=== PATIENT | female | born 2000 | race Hispanic/Latino ===

== ENCOUNTER 2025-08-13 14:48 | Inpatient (IN) | payer MEDICAID, OTHER, SELFPAY ==
[2025-08-13] MEDS ORDERED: Diphenoxylate HCl/Atropine Tablet PO PRN (20:14)
[2025-08-13] MEDS ORDERED: Tranexamic Acid 1,000 MG/10 ML VIAL IVP PRN (20:14)
[2025-08-13] MEDS ORDERED: hydrALAZINE 20 MG/ML VIAL SLOW IVP PRN (20:14)
[2025-08-13] MEDS ORDERED: Ondansetron PF 4 MG/2 ML Vial IVP PRN (20:14)
[2025-08-13] MEDS ORDERED: Carboprost 250 MCG/ML AMP IM PRN (20:14)
[2025-08-13] MEDS ORDERED: Methylergonovine 0.2 MG/ML VIAL IM PRN (20:14)
[2025-08-13] MEDS ORDERED: Ibuprofen 800 MG TAB PO PRN (20:14)
[2025-08-13] MEDS ORDERED: HYDROcodone/Acetaminophen 5/325 mg Tablet PO PRN (20:14)
[2025-08-13 20:26] VITALS: BMI 38.4
[2025-08-13] MEDS ORDERED: Oxytocin 30 units/NS 500 ML 500 ML IV SCH (20:30)
[2025-08-13 21:24] LABS: Hematocrit 34.9 % (34.9-44.5); Hemoglobin 11.9 g/dL (12.0-15.5); Mean Corpuscular Hemoglobin 32.8 pg (27.0-33.0); Mean Corpuscular Volume 96.1 fL (81.6-98.3); Platelet Count 142 10x3/uL (150-450); Red Blood Cell (RBC) Count 3.63 10x6/uL (3.90-5.03); White Blood Cell (WBC) Count 9.20 10x3/uL (3.5-10.5)
[2025-08-13 21:44] LABS: Hep B Surf Ag - L&D Non-Reactive S/CO (NonReactive)
[2025-08-13 21:45] LABS: Syphilis Antibody Index 0.02 S/CO (<1.00 Non-Reactive)
[2025-08-14] MEDS: fentaNYL/Ropivacaine Epidural 100 ML ONE (04:58)
[2025-08-14] MEDS ORDERED: Ondansetron PF 4 MG/2 ML Vial IVP PRN ×2 (05:20→16:43)
[2025-08-14] MEDS ORDERED: Acetaminophen 325 MG TAB PO PRN (05:20)
[2025-08-14] MEDS ORDERED: diphenhydrAMINE 50 MG/ML VIAL IVP PRN (05:20)
[2025-08-14] MEDS ORDERED: fentaNYL 2 mcg/Ropivacaine 0.2% Epidural 100 ML CADD EPIDURAL SCH (05:30)
[2025-08-14] MEDS ORDERED: Communication Order-Pharmacy FS SCH (05:30)
[2025-08-14] MEDS: Oxytocin 30 units/NS 500 ML 500 ML IV SCH (08:10)
[2025-08-14] MEDS: Lidocaine 1% (PF) 30 ML VIAL SC PRN (14:07)
[2025-08-14] MEDS ORDERED: Bisacodyl 10 MG SUPP PR PRN (16:43)
[2025-08-14] MEDS ORDERED: Milk Of Magnesia 30 ML UDCUP PO PRN (16:43)
[2025-08-14] MEDS ORDERED: Benzocaine-Menthol 82.5 ML CAN TOP PRN (16:43)
[2025-08-14] MEDS ORDERED: Lanolin Ointment 7 GM TUBE TOP PRN (16:43)
[2025-08-14] MEDS ORDERED: HYDROcodone/Acetaminophen 5/325 mg Tablet PO PRN (16:43)
[2025-08-14] MEDS ORDERED: diphenhydrAMINE 25 MG CAP PO PRN (16:43)
[2025-08-14] MEDS: Acetaminophen 500 MG TAB PO PRN (16:43)
[2025-08-14] MEDS ORDERED: Preparation H Ointment 28 GM TUBE PR PRN (16:43)
[2025-08-14] MEDS ORDERED: hydrALAZINE 20 MG/ML VIAL SLOW IVP PRN (16:43)
[2025-08-14] MEDS: Methylergonovine 0.2 MG/ML VIAL ONE (17:15)
[2025-08-14] MEDS: Carboprost 250 MCG/ML AMP ONE (17:15)
[2025-08-14] MEDS: Tranexamic Acid 1,000 MG/10 ML VIAL ONE (17:16)
[2025-08-14] MEDS: Ferrous Sulfate 325 MG TAB PO SCH (17:16)
[2025-08-14] MEDS: Ibuprofen 800 MG TAB PO SCH (21:30)
[2025-08-16 08:20] VITALS: BP 118/66; TEMP 97.8
== END 2025-08-16 18:00 | disposition home or self-care (01) | DRG 807 ==
LOC: CSHLD 19:55 → CSHPED 08-14 17:00
PROVIDERS: ADMIT Family Medicine; ATTEND Family Medicine
PROC: 10E0XZZ Delivery of Products of Conception, External Approach (ICD-10-PCS; principal; 2025-08-14)
PROC: 0KQM0ZZ Repair Perineum Muscle, Open Approach (ICD-10-PCS; 2025-08-14)
PROC: 4A1HXCZ Monitoring of Products of Conception, Cardiac Rate, External Approach (ICD-10-PCS; 2025-08-14)
PROC: 10907ZC Drainage of Amniotic Fluid, Therapeutic from Products of Conception, Via Natural or Artificial Opening (ICD-10-PCS; 2025-08-14)
PROC: 3E03329 Introduction of Other Anti-infective into Peripheral Vein, Percutaneous Approach (ICD-10-PCS; 2025-08-14)
PROC: 3E0R3BZ Introduction of Anesthetic Agent into Spinal Canal, Percutaneous Approach (ICD-10-PCS; 2025-08-14)
DX: O99.214 Obesity complicating childbirth (principal); Z37.0 Single live birth; O70.1 Second degree perineal laceration during delivery; Z3A.40 40 weeks gestation of pregnancy; Z79.82 Long term (current) use of aspirin; Z79.899 Other long term (current) drug therapy
CPT/HCPCS: 36415; 51702; 85027; 86780; 86850; 86900; 86901; 87340; 88307; J0595; J1580; J2003; J2590; J7120